=== PATIENT | female | born 2000 | race Caucasian/White ===

== ENCOUNTER 2025-01-17 13:29 | Outpatient (CLI) | payer OTHER, SELFPAY | END 2025-01-17 13:30 | disposition home or self-care (01) | LOC: NFLDREF 01-19 05:57 | PROVIDERS: Visit Provider Nurse Practitioner Family | DX: R30.0 Dysuria (principal); N39.0 Urinary tract infection, site not specified; N91.2 Amenorrhea, unspecified | CPT/HCPCS: 87086 ==

== ENCOUNTER 2025-06-21 19:11 | Day surgery (SDC) | payer OTHER, SELFPAY ==
[2025-06-21 19:19] VITALS: BP 124/87; PULSE 98; RESP 18; TEMP 37.1; O2SAT 98; BMI 21.3
[2025-06-21 19:37] LABS: Appearance Urine Clear (Clear)
[2025-06-21 19:39] LABS: Ur HCG Qualitative* Negative (Negative)
--- NOTE | 2025-06-21 21:50 | ED_ITS ---
HPI - Abdominal Pain General Time Seen by Provider: 21:50 Date Seen: 06/21/25 Chief Complaint: Abdominal Pain Stated Complaint: Sharp Rt Abd pain Time Seen by Provider: 06/21/25 21:50 Source: patient and RN notes reviewed Mode of arrival: ambulatory Limitations: no limitations History of Present Illness HPI narrative: This 24-year-old female is coming into the ER with right-sided abdominal pain starting last night around 7 or 8:00 p.m.. It is dull and achy, seems to be worsening. She completed her last menstrual period last week, originally when she started with this pain thought it was maybe ovulation. They have been trying to conceive for about 8 months. She has had no urinary frequency, no dysuria. She had her 1st UTI in December, had significant pain with that. She has had some nausea but no vomiting, she is actually hungry right now. She did have a bowel movement this morning and symptoms did not change at all. She feels it throughout the right side of her abdomen, is achy. She knew that she was not going to be able to sleep tonight. She does note 1st day of her menstrual cycles her cramping will be quite intense. 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 No alcohol use. What is your current living situation?: I presently have a place to live Problems where you live: no known problems Problems where you live details: n/a In the past 12 months, utilities in danger of being shut off: no In past 12 months, lack of transportation kept you from medical appts, meetings, work, or getting things needed for daily living: no In the past 12 mos, have been you worried that your food would run out before you had money to buy more?: never true In the past 12 mos, the food you bought just didn't last and you didn't have money to buy more?: never true Smoking Status: Never smoker How often do you have a drink containing alcohol: never AUDIT-C Alcohol total score: 0 How often does anyone, including family, friends and others, physically hurt you : never How often does anyone, including family, friends and others, insult or talk down to you: never How often does anyone, including family, friends and others, threaten you with harm: never How often does anyone, including family, friends and others, scream or curse at you: never Exam Const: Vital Signs, click to edit/add: Vital Signs - 24 hr 06/22/25 10:30 06/22/25 10:45 06/22/25 11:00 Temperature 97.8 F 98.1 F 98.1 F Pulse Rate [Pulse Oximeter] 64 60 60 Respiratory Rate 16 15 15 Blood Pressure [Ri ght Arm] 107/60 97/55 L 97/55 L Pulse Oximetry 94 95 95 Oxygen Delivery Me thod Room Air Room Air Room Air 06/22/25 11:30 06/22/25 12:00 06/22/25 13:00 Temperature 98.1 F 97.3 F L 97.8 F Pulse Rate [Pulse Oximeter] 62 64 68 Respiratory Rate 15 16 17 Blood Pressure [Ri ght Arm] 100/60 113/75 99/54 L Pulse Oximetry 95 94 98 Oxygen Delivery Me thod Room Air Room Air Room Air 06/22/25 14:00 06/22/25 15:00 06/22/25 15:00 Temperature 98.0 F Pulse Rate [Pulse Oximeter] 69 69 Respiratory Rate 17 17 17 Blood Pressure [Ri ght Arm] 118/68 Pulse Oximetry 98 98 Oxygen Delivery Me thod Room Air Room Air 06/22/25 15:00 06/22/25 16:00 Temperature 97.9 F 98.0 F Pulse Rate [Pulse Oximeter] 68 68 Respiratory Rate 15 15 Blood Pressure [Ri ght Arm] 104/65 104/62 Pulse Oximetry 98 99 Oxygen Delivery Me thod Room Air This 24-year-old female is alert, interactive, no apparent distress. She is lying in the bed in exam room 7. Sclera clear, speech normal. She is able sit up, lungs are clear, good air entry, no wheezing or crackles, no tachypnea, accessory muscle use. CV regular rate and rhythm, no murmur, normal S1-S2. Abdomen is soft, flat, nondistended. There is no organomegaly or masses noted. She is feeling tenderness throughout the whole right side but on palpation, has definite right lower quadrant tenderness with some mild guarding but no rebound at this time. Pelvic exam and bimanual exam deferred at this time. Documenting provider has reviewed patient's vital signs: yes Course Course ED Course: Patient's pain and clinical exam are certainly concerning for potential appendicitis. Do feel that we need to proceed with CT imaging with IV contrast to rule this out. She understands that certainly right ovarian pathology can be possible as well. We may need to proceed with pelvic ultrasound if needed. We will place an IV for visualization with contrast better on CT imaging. She does understand this after explanation. Will also look at baseline labs. She had negative urine test and urinalysis which were appropriately collected in triage. Patient is asked to be NPO at this point until we have defined this is not surgical. She declines anything for pain or nausea at this time, she will let us know if she changes her mind. Reevaluation(s) Time of Reevaluation #1: 23:14 Reevaluation #1: Have reviewed with patient that she has appendicitis, discussed the CT with her. She understands that she will go into the hospital overnight and will hopefully discharge to home if surgery is uncomplicated. She will be started on antibiotics. We will keep her NPO. Consultations Consultation #1: Have called general surgeon, talked to Dr. Hurst, she is going to look at CT and call back. 11:09 p.m.: Have had follow-up conversation with Dr. Hurst. She has had a chance to look at the CT. Patient will have surgery tomorrow morning 8:00 a.m.. We will admit overnight on Zosyn. I have ordered 1st dose here. Time: 22:44 Vital Signs Vital signs: Initial Vital Signs Temperature 98.7 F 06/21/25 19:19 Temperature Source Temporal Artery Scan 06/21/25 19:19 Pulse Rate 98 06/21/25 19:19 Pulse Rhythm Regular 06/21/25 19:19 Respiratory Rate 18 06/21/25 19:19 Blood Pressure 124/87 06/21/25 19:19 Blood Pressure Mean 99 06/21/25 19:19 Blood Pressure Position Sitting 06/21/25 19:19 Pulse Oximetry 98 06/21/25 19:19 Oxygen Delivery Method Room Air 06/21/25 19:19 Vital Signs Temperature 98.7 F 06/21/25 19:19 Pulse Rate 98 06/21/25 19:19 Respiratory Rate 18 06/21/25 19:19 Blood Pressure 124/87 06/21/25 19:19 Pulse Oximetry 98 06/21/25 19:19 Oxygen Delivery Method Room Air 06/21/25 19:19 Temperature 98.0 F 06/22/25 16:00 Pulse Rate 68 06/22/25 16:00 Respiratory Rate 15 06/22/25 16:00 Blood Pressure 104/62 06/22/25 16:00 Pulse Oximetry 99 06/22/25 16:00 Oxygen Delivery Method Room Air 06/22/25 15:00 Medications Administered Medications: Discontinued Medications Generic Name Dose Route Start Last Admin Trade Name Freq PRN Reason Stop Dose Admin Hydrocodone Bitart/Acetaminophen 1 - 2 tab 06/21/25 23:41 06/22/25 17:10 Hydrocodone-Acetamin 5-325 Mg 1 Tab PO 1 tab Q4H PRN Administration Pain Hydromorphone HCl 0.1 - 0.5 mg 06/21/25 23:41 06/22/25 14:06 Hydromorphone 0.5 Mg/0.5 Ml Inj IVP 0.2 mg Q2H PRN Administration Pain Piperacillin Sod/Tazobactam 100 mls @ 200 mls/hr 06/21/25 23:15 06/22/25 02:37 Sod 3.375 gm/ Sodium Chloride IVPB Infused Q6H KAI Infusion Lactated Ringer's 1,000 mls @ 125 mls/hr 06/21/25 23:41 06/22/25 17:09 Lactated Ringers 1000 Ml IV Not Given .Q8H KAI Piperacillin Sod/Tazobactam 100 mls @ 200 mls/hr 06/22/25 05:00 06/22/25 06:00 Sod 3.375 gm/ Sodium Chloride IVPB Infused Q6H KAI Infusion Ondansetron HCl 4 - 8 mg 06/21/25 23:41 06/22/25 10:30 Ondansetron 2 Mg/Ml Inj IVP 4 mg Q8H PRN Administration Nausea And Vomiting Prochlorperazine 5 mg 06/22/25 10:38 06/22/25 14:04 Prochlorperazine 5 Mg/Ml Vial IV 06/22/25 10:39 5 mg ONCE ONE Administration MDM - Abdominal Pain Lab Data Attestation: I reviewed the patient's lab results. Labs: Lab Results 06/21/25 06/21/25 Range/Units 19:15 22:05 WBC 11.53 H (4.50-11.00) K/uL RBC 4.31 (4.00-5.20) m/uL Hgb 12.9 (12.0-16.0) gm/dL Hct 36.7 (33.0-51.0) % MCV 85 (80-100) fL MCH 30 (26-34) pg MCHC 35 (32-36) gm/dL RDW Coeff of Remigio 12.2 (11.5-15.5) % Plt Count 201 (140-440) K/uL Neut % (Auto) 84.5 H (42.0-72.0) % Lymph % (Auto) 10.6 L (20-44) % [place] % (Auto) 4.3 (0.0-11.0) % Eos % (Auto) 0.4 (0.0-7.0) % Baso % (Auto) 0.1 (0.0-3.0) % Neut # (Auto) 9.70 H (1.7-7.0) K/uL Lymph # (Auto) 1.20 (0.90-2.90) K/uL [place] # (Auto) 0.50 (0.00-0.90) K/UL Eos # (Auto) 0.00 (0.00-0.50) K/uL Baso # (Auto) 0.00 (0.00-0.30) K/uL Abs Immat Gran (auto) 0.00 (0.00-0.30) K/uL Imm/Tot Granulo (auto) 0.1 % Sodium 134 L (135-149) mmol/L Potassium 3.8 (3.6-5.1) mmol/L Chloride 103 (96-114) mmol/L Carbon Dioxide 24 (20-32) mmol/L Anion Gap 7 (7-15) mEq/L BUN 10 (5-24) mg/dL Creatinine 0.7 (0.5-1.5) mg/dL Estimated Creat Clear 112.47 Estimated GFR 125 ml/min Glucose 98 (60-115) mg/dL Lactate 0.6 (0.5-1.9) mmol/L Calcium 9.0 (8.4-10.6) mg/dL Total Bilirubin 0.5 (0.1-1.5) mg/dL AST 20 (12-35) U/L ALT 14 (4-35) U/L Alkaline Phosphatase 55 (40-150) U/L C-Reactive Protein 1.0 (0.5-1.0) mg/dL Total Protein 7.4 (6.0-8.3) g/dL Albumin 4.5 (3.3-5.0) g/dL Urine Color Yellow (Yellow) Urine Appearance Clear (Clear) Urine pH 7.5 (5.0-8.5) Ur Specific [place] 1.025 (1.000-1.030) Urine Protein Negative (Negative) Urine Glucose (UA) Negative (Negative) Urine Ketones Negative (Negative) Urine Blood Trace-intact A (Negative) Urine Nitrite Negative (Negative) Urine Bilirubin Negative (Negative) Urine Urobilinogen 0.2 (0.2-1.0) Ur Leukocyte Esterase Negative (Negative) Urine RBC 0-2 (0-2) Urine WBC 0-2 (0-5) Ur Squamous Epith Cells None (None-Few) Amorphous Sediment Moderate A (None) Urine Bacteria None (None) Urine HCG, Qual Negative (Negative) Imaging Data CT scan - abdomen: Attestation: I have reviewed the pertinent imaging results. My impression: Did visualize her CT, looks to have appendicoliths and probable appendicitis; await Radiology over-read. Radiologist's impression: Patient: ADRIEL CRUZ Facility:?[facility] Patient ID:?[id number] Site Patient ID:?[id number]. Site :?[id number] Study:?CT-Abdomen/Pelvis W/ 63CC ISOVUE 370-06/21/2025 10:20:57 PM Ordering Physician:Yasemin Martinez Final Report: INDICATION: Right lower quadrant abdominal pain. TECHNIQUE: CT abdomen and pelvis acquired with 63 cc Isovue 370 IV contrast. COMPARISON: None. FINDINGS: Lower chest: Unremarkable. Liver: Unremarkable. Normal in size and attenuation. No suspicious masses. Gallbladder and bile ducts: Unremarkable. No stones or inflammation. No biliary dilatation. Pancreas: Unremarkable. No mass or inflammation. Spleen: Unremarkable. Normal in size. No masses. Adrenal glands: Unremarkable. No nodules. Kidneys: Unremarkable. No suspicious masses, stones, or hydronephrosis. GI tract: Unremarkable. Normal in caliber. No sign of mass or inflammation. Appendix is markedly dilated measuring up to 15 mm with gross inflammatory changes. Multiple fecaliths within the appendix. No sign of arabella perforation or abscess. Vasculature: Abdominal aorta is normal in caliber. Mesenteric arteries are patent. Lymph nodes: No lymphadenopathy. Peritoneum/Abdominal Wall: Unremarkable. No sign of mass or infiltration. No free air or significant free fluid. Pelvis: Unremarkable. Bones: Unremarkable for age. IMPRESSION: Acute appendicitis. Please note that all CT scans at this facility use dose modulation, iterative reconstruction, and/or weight-based dosing when appropriate to reduce radiation dose to as low as reasonably achievable. Dictated by Alirio Kyle MD @ 06/21/2025 10:26:29 PM (Electronic Signature) Discharge Plan Discharge Clinical Impression: Acute appendicitis Qualifiers: Acute appendicitis type: with localized peritonitis Appendicitis gangrene presence: without gangrene Appendicitis perforation presence: without perforation Appendicitis abscess presence: without abscess Qualified Code(s): K35.30 - Acute appendicitis with localized peritonitis, without perforation or gangrene Patient Disposition: XFER to OR
--- NOTE | 2025-06-21 21:59 | CRLHL7_ITS ---
For Patients: As a result of the Century Cures Act, medical imaging exams and procedure reports are released immediately into your electronic medical record. You may view this report before your referring provider. If you have questions, please contact your health care provider. INDICATION: Right lower quadrant abdominal pain. TECHNIQUE: CT abdomen and pelvis acquired with 63 cc Isovue 370 IV contrast. COMPARISON: None. FINDINGS: Lower chest: Unremarkable. Liver: Unremarkable. Normal in size and attenuation. No suspicious masses. Gallbladder and bile ducts: Unremarkable. No stones or inflammation. No biliary dilatation. Pancreas: Unremarkable. No mass or inflammation. Spleen: Unremarkable. Normal in size. No masses. Adrenal glands: Unremarkable. No nodules. Kidneys: Unremarkable. No suspicious masses, stones, or hydronephrosis. GI tract: Unremarkable. Normal in caliber. No sign of mass or inflammation. Appendix is markedly dilated measuring up to 15 mm with gross inflammatory changes. Multiple fecaliths within the appendix. No sign of arabella perforation or abscess. Vasculature: Abdominal aorta is normal in caliber. Mesenteric arteries are patent. Lymph nodes: No lymphadenopathy. Peritoneum/Abdominal Wall: Unremarkable. No sign of mass or infiltration. No free air or significant free fluid. Pelvis: Unremarkable. Bones: Unremarkable for age. IMPRESSION: Acute appendicitis. Please note that all CT scans at this facility use dose modulation, iterative reconstruction, and/or weight-based dosing when appropriate to reduce radiation dose to as low as reasonably achievable. Dictated by Alirio Kyle MD @ 06/21/2025 10:26:29 PM (Electronically Signed)
[2025-06-21 22:11] LABS: Lactate* 0.6 mmol/L (0.5-1.9)
[2025-06-21 22:14] LABS: Hematocrit* 36.7 % (33.0-51.0); Hemoglobin* 12.9 gm/dL (12.0-16.0); Immature Granulocytes Pct Auto 0.1 %; Mean Corpuscular HGB Conc 35 gm/dL (32-36); Mean Corpuscular Hemoglobin 30 pg (26-34); Mean Corpuscular Volume 85 fL (80-100); RDW Coefficient of Variation % 12.2 % (11.5-15.5); Red Blood Count* 4.31 m/uL (4.00-5.20); White Blood Count* 11.53 K/uL (4.50-11.00)
[2025-06-21 22:21] LABS: Immature Granulocytes Abs Auto 0.00 K/uL (0.00-0.30); Lymphocytes Absolute Auto 1.20 K/uL (0.90-2.90); Slide Review Reflex No
[2025-06-21 22:26] LABS: Chloride* 103 mmol/L (96-114)
[2025-06-21 22:27] LABS: Albumin* 4.5 g/dL (3.3-5.0); Potassium* 3.8 mmol/L (3.6-5.1); Sodium* 134 mmol/L (135-149)
[2025-06-21 22:29] LABS: Blood Urea Nitrogen* 10 mg/dL (5-24); Creatinine* 0.7 mg/dL (0.5-1.5); Est. Creatinine Clearance* 112.47; Estimated Glomerular Filt Rate 125 ml/min
[2025-06-21 22:30] LABS: Alanine Aminotransferase* 14 U/L (4-35); Alkaline Phosphatase* 55 U/L (40-150); Anion Gap 7 mEq/L (7-15); Aspartate Amino Transferase* 20 U/L (12-35); Bilirubin Total* 0.5 mg/dL (0.1-1.5); Calcium* 9.0 mg/dL (8.4-10.6); Carbon Dioxide* 24 mmol/L (20-32); Glucose* 98 mg/dL (60-115); Total Protein* 7.4 g/dL (6.0-8.3)
[2025-06-21 22:54] VITALS: PULSE 81; O2SAT 98
[2025-06-21 23:01] VITALS: PULSE 85; O2SAT 99
[2025-06-21 23:15] VITALS: PULSE 113; O2SAT 99
[2025-06-21] MEDS: PIPERACILLIN/TAZOBACTAM 3.375 GM in 0.9 % SODIUM CHLORIDE Mini-bag 100 ML IVPB (23:23)
[2025-06-21 23:31] VITALS: PULSE 106; O2SAT 99
[2025-06-21 23:38] VITALS: BMI 21.3; BMI 21.4
[2025-06-21] MEDS: HYDROCODONE-ACETAMIN 5-325 MG 1 TAB PO (23:57)
[2025-06-21] MEDS: LACTATED RINGERS 1000 ML 1,000 ML 125 ML IV (23:58)
[2025-06-22] VITALS (14 sets, daily range): BP systolic 92–119; BP diastolic 54–77; PULSE 60–97; RESP 15–17; TEMP 36.3–36.7; O2SAT 93–99
[2025-06-22] MEDS: PIPERACILLIN/TAZOBACTAM 3.375 GM in 0.9 % SODIUM CHLORIDE Mini-bag 100 ML IVPB (05:18)
--- NOTE | 2025-06-22 07:59 | PC.NURSE ---
Shift note (2756-2012): Patient admitted from ED?at?2334.?Pt ambulated to room accompanied by Evin and charge nurse.?Pt pleasant,?alert?and oriented. Given PRN [place] upon admission for pain in right abdomen rated 7/10?with movement.?Had sips of water with PRN medication, has otherwise been NPO since arrival.??remained at bedside during?night. Declined PRN pain?medications when offered at 0615.?
--- NOTE | 2025-06-22 08:12 | P.GSHP_ITS ---
History of Present Illness History of Present Illness Date Seen: 06/22/25 Chief complaint: Sharp Rt Abd pain Narrative: Livia Aguilar is a 24 year old female who presented to the emergency department last evening with right lower quadrant pain. She states that 3 days prior, she noticed some mild discomfort in her mid to right abdomen. In the evening 2 days ago she had lower abdominal pain and cramping. She also noticed right lower quadrant pain. She tried to sleep but then woke up in the more worse yesterday. Because the pain progressed she came into the emergency department to be seen. She has a small amount of nausea but is now hungry so she is thinking that it could be related to that. Her pain is worse with movement. It is about a 6/10 when she is sitting still. She has not had any fevers. 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 What is your current living situation?: I presently have a place to live Problems where you live: no known problems Problems where you live details: n/a In the past 12 months, utilities in danger of being shut off: no In past 12 months, lack of transportation kept you from medical appts, meetings, work, or getting things needed for daily living: no In the past 12 mos, have been you worried that your food would run out before you had money to buy more?: never true In the past 12 mos, the food you bought just didn't last and you didn't have money to buy more?: never true Smoking Status: Never smoker How often do you have a drink containing alcohol: never AUDIT-C Alcohol total score: 0 How often does anyone, including family, friends and others, physically hurt you : never How often does anyone, including family, friends and others, insult or talk down to you: never How often does anyone, including family, friends and others, threaten you with harm: never How often does anyone, including family, friends and others, scream or curse at you: never Meds Home Medications and Allergies Home Medications ?Medication ?Instructions ?Recorded ?Confirmed ?Type No Known Home Medications 06/21/2506/03 History Allergies Allergy/AdvReac Type Severity Reaction Status Date / Time No Known Drug Allergies Allergy Verified 06/21/25 19:22 Exam Narrative: Exam Narrative: General appearance: Alert, cooperative, and in no distress Eyes: PERRLA, eye lids clear, and sclera white HENT Head: Normocephalic Ears: External ears normal Pulmonary: Clear to auscultation bilaterally Cardiovascular Heart: Regular rate and rhythm Extremities: warm and well perfused Gastrointestinal Abdominal: No scars. Soft. Nondistended. She is tender with guarding in the right lower quadrant. Musculoskeletal: Extremities: Upper: Both upper extremities have normal joint range of motion and intact strength. Lower: Both lower extremities have normal joint range of motion and intact strength. Skin: Normal skin color, texture, and turgor. Neurologic: No focal deficits Psychiatric: Alert, oriented, cooperative, normal affect. Const: Vital Signs, click to edit/add: Vital Signs - 24 hr 06/21/25 19:19 06/21/25 22:54 06/21/25 23:01 Temperature 98.7 F Pulse Rate 81 85 Pulse Rate [Pulse Oximeter] Pulse Rate [Right] 98 Respiratory Rate 18 Blood Pressure [Ri ght Arm] Blood Pressure [Ri ght Upper Arm] 124/87 Pulse Oximetry 98 98 99 Oxygen Delivery Me thod Room Air 06/21/25 23:15 06/21/25 23:31 06/22/25 00:06 Temperature 98.1 F Pulse Rate 113 H 106 H Pulse Rate [Pulse Oximeter] 91 Pulse Rate [Right] Respiratory Rate 17 Blood Pressure [Ri ght Arm] 119/77 Blood Pressure [Ri ght Upper Arm] Pulse Oximetry 99 99 99 Oxygen Delivery Me thod Room Air 06/22/25 03:41 06/22/25 06:15 06/22/25 07:00 Temperature 97.6 F 98.1 F Pulse Rate Pulse Rate [Pulse Oximeter] 75 97 Pulse Rate [Right] Respiratory Rate 17 17 Blood Pressure [Ri ght Arm] 92/60 103/64 Blood Pressure [Ri ght Upper Arm] Pulse Oximetry 98 99 99 Oxygen Delivery Me thod Room Air Room Air Room Air Results Results Labs: White blood cell count last evening was 11. Hemoglobin 12.9 Urine hCG was negative Sodium 134, remainder of chemistries were normal Urine was negative for UTI Additional studies: CT scan done last evening showed was a dilated appendix with appendicolith and inflammation surrounding. No sign of arabella perforation or abscess. Progress Note:A&P Assessment and plan (1) Acute appendicitis: Status: Acute Plan The patient is an otherwise healthy 24-year-old female with acute appendicitis. We discussed that appendectomy is the preferred treatment for this. This can most often be done laparoscopically. We discussed risks and benefits of the procedure including but not limited to bleeding, need for conversion to open, risk of injury to other structures, need for possible bowel resection, and abscess formation. The patient understands that the risk of abscess is higher if the appendix is perforated. For that reason, we generally keep patient is in the hospital on IV antibiotics until vital signs and white blood cell count had normalized. We also discussed recovery including 2 weeks of lifting restrictions. She is agreeable to proceed with surgery will plan on surgery urgently this morning.
--- NOTE | 2025-06-22 08:19 | PM.GSPRC ---
Operative Note Date of procedure: 06/22/25 Pre-op diagnosis: Acute appendicitis Post-op diagnosis: Same Type of Procedure: Laparoscopic appendectomy Indications: The patient is a 24-year-old female who presented with 3 days of lower abdominal pain. Workup revealed acute appendicitis with appendicolith the no CT-evidence of perforation. I recommended appendectomy and she agreed to proceed. Procedure Description: After discussing the risks and benefits of the procedure, the patient signed informed consent.? The operative site was marked and the patient was brought to the operating room and placed on the operating table in supine position.? Care was taken to pad the patient's pressure points.?? The patient was then intubated by anesthesia.?? The operative site was then prepped and draped in the usual sterile fashion.? A time-out was then performed. Entrance to the abdomen was obtained via a 5 mm optical trocar in the left upper quadrant. The abdomen was insufflated. A 12 mm port was placed inferior to the umbilicus as well as a 5 mm port in the left lower quadrant. Both were done under direct vision. The upper abdomen abdomen was surveyed for any signs of injury. There was a small amount of blood staining noted in the superior to the stomach on the retroperitoneum, in the area of the pancreas. This was investigated and there was no violation of the retroperitoneum or laceration of the pancreas or peripancreatic fat. No hematoma was noted. The patient was then placed in Trendelenburg position with the right side up. The small bowel was gently moved out of the way and the appendix was identified posterior lateral to the cecum. The cecum was gently moved out of the way. The mesoappendix was adherent to the cecum and the lateral aspect of the appendix was adherent to the retroperitoneum. Carefully, using LigaSure I dissected through the mesoappendix with care to stay right on the pancreas to avoid any injury to the cecum. I freed the lateral peritoneal attachments. Once I was pulled the appendix into view, I then dissected through the mesoappendix down to the base of the appendix, dividing the mesoappendix and appendiceal artery. An Aviasales-BUTCH purple load stapler was then used to transect the appendix just below its base, taking a cuff of cecum as the base of the appendix was noted to be inflamed as well. The staple line was inspected. It was intact and there was no bleeding noted. The appendix was then removed from the abdomen using an Endo-Catch bag. The specimen was sent to pathology. The abdomen was again surveyed. There was no evidence of injury to the cecum where the mesoappendix had been dissected free. Again the staple line was hemostatic. I again examined the retroperitoneum above the stomach. There was no ongoing bleeding noted. And again just a small amount of blood staining on the retroperitoneum without any violation noted. The ports were then removed the abdomen desufflated. The 12 mm port site fascia was closed with 0 Vicryl. The skin was then closed with absorbable subcuticular suture. Sterile dressings were then applied. Instrument sponge and needle counts were correct at the end of the case. The patient was then woken and transported to the PACU in stable condition. The patient tolerated the procedure well. Findings: 1. Retrocecal appendix 2. Acute, non perforated appendicitis Anesthesia: CELESTE Surgeon: Minal Hurst MD Estimated blood loss (mL): 5 Specimen: Appendix Condition: stable Disposition: PACU
[2025-06-22] MEDS: ONDANSETRON 2 MG/ML inj IVP (10:30)
[2025-06-22] MEDS: LACTATED RINGERS 1000 ML 1,000 ML 125 ML IV (10:35)
[2025-06-22] MEDS: HYDROCODONE-ACETAMIN 5-325 MG 1 TAB PO ×2 (13:31→17:10)
[2025-06-22] MEDS: PROCHLORPERAZINE 5 MG/ML VIAL IV (14:04)
--- NOTE | 2025-06-22 14:48 | PC.NURSE ---
End of shift report [id number]: Pleasant and cooperative. A&O x 4. Pain reported to abdominal incisions, managed well with PRN medications. 3 laparoscopic incisions with scant bloody drainage. Patient reporting nausea, PRN zofran administered with minimal relief, call placed to Dr. Hurst and 1 time order of compazine ordered. Patient requested to wait on medication. tolerating ice chips and sips of water. At 1400 patient had increased nause and vomited 50ml of yellow fluid. Compazine administered and moderately effective for nausea. Patient fatigued, sleeping most of recovery. bedside.
== END 2025-06-22 18:00 | disposition home or self-care (01) ==
LOC: ED 22:38 → SS 23:31 → MEDSURG 23:35
PROVIDERS: Emergency Provider Family Medicine; Visit Provider Surgery
DX: K35.80 Unspecified acute appendicitis (principal)
CPT/HCPCS: 44970; 00840; 36415; 74177; 80053; 81001; 81003; 81025; 83605; 85025; 86140; 88304; 99140; 99284; 99285; A9270; J0330; J0665; J0780; J1171; J1885; J2250; J2405; J2543; J2704; J2710; J3010; J7120; Q9967